=== PATIENT | female | born 1955 | race Caucasian/White ===

== ENCOUNTER 2023-11-29 15:55 | Emergency (ER) | payer MEDICARE, OTHER, SELFPAY ==
[2023-11-29 15:59] VITALS: BP 180/98
[2023-11-29 16:29] LABS: % Basophils 0.3 % (0-2); % Eosinophils 2.3 % (0-6); % Immature Granulocytes 0.3 % (0-0.5); % Lymphocytes 29.2 % (20.5-51.1); % Monocytes 7.3 % (1.7-9.3); % Neutrophils 60.6 % (42.2-75.2); Absolute Eosinophils 0.2 10^3/uL (0-0.7); Absolute Lymphocytes 1.9 10^3/uL (1.2-3.4); Absolute Monocytes 0.5 10^3/uL (0.1-0.6); Absolute Neutrophils 3.9 10^3/uL (1.4-6.5); Hematocrit 38.2 % (37.0-47.0); Hemoglobin 13.6 g/dL (12.0-16.0); Mean Corp Hgb Conc. 35.6 g/dL (33.0-37.0); Mean Corpuscular Hgb 31.8 pg (27.0-31.0); Mean Corpuscular Volume 89.3 fL (81.0-99.0); Mean Platelet Volume 10.1 fL (7.4-10.4); Nucleated Red Blood Cells % 0 %; Platelet Count 263 10^3/uL (130-400); Red Blood Cell Count 4.28 10^6/uL (4.20-5.40); Red Cell Dist. Width 11.9 % (11.5-14.5); White Blood Cell Count 6.4 10^3/uL (4.8-10.8)
[2023-11-29 16:48] LABS: ALT (SGPT) 19 U/L (0-35); AST (SGOT) 24 U/L (14-36); Albumin 4.5 g/dl (3.5-5.0); Alkaline Phosphatase 50 U/L (38-126); Blood Urea Nitrogen 16 mg/dl (7-17); Calcium 9.2 mg/dl (8.4-10.2); Carbon Dioxide 26 mmol/L (22-30); Chloride 97 mmol/L (98-107); Glucose 110 mg/dl (70-99); Lipase 56 U/L (23-300); Potassium 5.4 mmol/L (3.5-5.1); Sodium 127 mmol/L (135-145); Total Bilirubin 0.6 mg/dl (0.2-1.3); Total Protein 6.9 g/dl (6.3-8.2); eGFR > 60.00
--- NOTE | 2023-11-29 17:24 | ED.GENMED ---
History of Present Illness
General
Chief Complaint: Abdominal Symptoms
Time Seen by Provider: 11/29/23 17:24
Travel History
Have you had any contact with someone who has COVID-19?: No
Do you have any symptoms of coronavirus? Fever > 100 degrees, chills, cough, shortness of breath, sore throat, loss of taste or smell, muscle aches, or headache?: No
History of Present Illness
History of Present Illness:
HPI: The patient presents due to diarrhea. She states has been ongoing for about the past month or so. She was positive for enteroaggregative E. coli as well as norovirus about 10 days ago. She was on 3 days of azithromycin. There is been no
improvement. She has no pain. She states that everything he eats 'goes right through me'.
EXAM:
GENERAL: Well appearing in no distress, she is
HEENT: Moist oral mucosa
CARDIOVASCULAR: No murmurs, normal heart rate and rhythm, No chest wall tenderness
PULMONARY: No respiratory distress, breath sounds are clear and equal
ABDOMEN: Soft with no peritoneal signs, no tenderness
NEUROLOGIC: Excellent strength all extremities, no coordination deficits
PSYCHIATRIC: Appropriate mental status, normal insight and judgement
EXTREMITIES: Nontender, no edema, moves all extremities equally
SKIN: No rash, no lesions
ED COURSE:
6 PM: I initially evaluated patient
NUMBER AND COMPLEXITY OF PROBLEMS ADDRESSED AT THE ENCOUNTER
� Chronic conditions affecting care: High blood pressure
� Acute Exacerbation and/or Progression of Chronic Illness: Diarrhea is an acute problem
� Differential Diagnosis includes: Dehydration, hypokalemia, ELIO
AMOUNT AND/OR COMPLEXITY OF DATA TO BE REVIEWED AND ANALYZED
� I performed an independent evaluation of and my interpretation is:
EKG:
CT:
X-rays:
Laboratory Studies: White count normal, hemoglobin normal, sodium slightly low at 127, potassium 5.4
Other:
� Review of other/old records: Sodium from 05/03/2023 was 131
� Clinical information was obtained by an independent historian: at bedside
� Prescriptions/Medications Considered but not given:
� Further testing considered but not performed: No clear indication for CT imaging as she has no pain and nontender abdomen
RISK OF COMPLICATIONS AND/OR MORBIDITY OR MORTALITY OF PATIENT MANAGEMENT
� Social determinants of health affecting care: Lives at home
� Discussion with other providers: I spoke to ID, Dr. Gomez who evaluated patient at bedside and recommended discontinuing the collagen use and starting the brat diet. No antibiotics recommended
� Escalation of care including admission/observation vs risk of discharge considered: The patient appears well-hydrated. Surprisingly, the potassium such on the high side despite having a lot of diarrhea. She was given IV
fluids. She is well-appearing. No clear indication for admission to hospital
Phy Exam
Physical Exam
Physical Exam:
See HPI
Course
Orders/Labs/Results
Orders:
Orders
11/29/23 16:08
Complete Blood Count/With Diff Urgent
Comprehensive Metabolic Panel Urgent
Lipase Urgent
Serum Osmolality Urgent
Comment: ADD ON
11/29/23 17:28
Add On- LAB Urgent
Tests Added?: osmolarity
11/29/23 17:58
0.9% Sodium Chloride 1000 ml [Nss] 1,000 ml IV BOLUS
Abnormal Lab Results
11/29/23
16:08
MCH 31.8 H pg
(27.0-31.0)
Sodium 127 L mmol/L
(135-145)
Potassium 5.4 H mmol/L
(3.5-5.1)
Chloride 97 L mmol/L
(98-107)
Glucose 110 H mg/dl
(70-99)
11/29/23 16:08
11/29/23 16:08
Vital Signs
Initial and Last Documented VS:
Initial Vital Signs
Temp Pulse Resp BP Pulse Ox
98 F 65 16 180/98 99
11/29/23 15:59 11/29/23 15:59 11/29/23 15:59 11/29/23 15:59 11/29/23 15:59
Last Documented Vital Signs
Temp Pulse Resp BP Pulse Ox
98 F 65 16 178/91 94
11/29/23 15:59 11/29/23 15:59 11/29/23 15:59 11/29/23 19:00 11/29/23 19:01
*Critical Care Note
Total Time (30-74mins, 75-104mins- exclusive of procedures): Not Applicable
ED Attending Note
-
Portions of this chart may have been created with voice recognition software.� Occasional wrong word or��sound alike� substitutions may have occurred due to the inherent limitations of voice recognition software.
Discharge Plan
Departure
Patient Disposition: Home (Routine Discharge)
Date of Disposition: 11/29/23
Time of Disposition: 20:36
Patient with high blood pressure during this ER visit?: Yes
Discharge Problem:
Diarrhea
Instructions: Dehydration, Adult (DC)
Referrals:
Nichole Montgomery CRNP [Family Provider] -
Frederic Gomez, DO [Active] - Follow up in 5-7 days
Activity Restrictions/Additional Instructions:
I did ask Dr. Petitnfectious disease to evaluate you. He recommends that you stop the collagen supplementation and also recommends the brat diet (bananas, rice, applesauce, toast). Your sodium was a little bit low but we did give you a bag of
saline. Return here if worse.
Interventions
Interventions:
*Risk Screen - Suicide Last Done: 11/29/23 18:20
*General Assessment Last Done: 11/29/23 18:20
*Neglect/Abuse Screening Last Done: 11/29/23 18:20
ED- Fall Risk Assessment Last Done: 11/29/23 19:18
*ED COVID-19 Vaccine History Last Done: 11/29/23 18:20
UP-Brsocx-Fkudrymcup Assessment Last Done: 11/29/23 18:21
[2023-11-29 18:19] VITALS: BP 139/80
[2023-11-29] MEDS: NSS 1000 IV (18:29)
[2023-11-29 19:00] VITALS: BP 178/91
[2023-11-29 20:27] LABS: Osmolality Serum 276 mOsm/kg (275-300)
--- NOTE | 2023-11-29 20:39 | CON.ID ---
Consultation
-
Date/Time Consultation Requested: 11/29/2023 1803
Date/Time Consultation Performed: 11/29/20232029
Requesting Provider: Dr. Collazo
Performing Provider: Dr. Gomez
Reason for Consultation: Diarrhea
Chief Complaint / Past History
History of Present Illness
Joann Cisneros is a 58-year-old female being evaluated at the request of Joseph Collazo regarding diarrhea. History is obtained from chart review, along with patient interview and history obtained from the patient's who was at the
bedside.
The patient reports that she was in her usual state of health until a few days after 10/31 when she began with explosive diarrhea nausea and headache. Symptoms of diarrhea persisted and she saw her PCP approximately 1 week later and multiple tests
were run, which revealed the presence of norovirus and enteroaggregative E. coli. She was prescribed a 3-day course of Zithromax and she reports slight improvement. She notes that over that time. Though she has had waxing and waning diarrhea,
which she describes as explosive but sometimes. She reports trying Imodium without significant effect. At present she admits to only slight abdominal discomfort. She denies any fevers or chills. She describes stool consistency as similar to
'mushy pudding' which sometimes becomes more watery.
She denies any history of travel. She does have cats in the house. No other sick contacts. Her denies having had any similar symptoms.
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 She reports that she bought the product off of [employer].. She is also on supplementation for vitamin C
and vitamin D.
Past History
Additional Past Medical History:
HTN
Migraines
IBS
Additional Past Surgical History:
KALI
Appendectomy
Allergy History:
No Known Allergies Allergy (Unverified 11/29/23 15:59)
Medications Reviewed: Yes
Current Antibiotics:
None
Family History
Family History: Not Pertinent
Review of Systems
Vital Signs
Temp Pulse Resp BP Pulse Ox
98 F 65 16 178/91 94
11/29/23 15:59 11/29/23 15:59 11/29/23 15:59 11/29/23 19:00 11/29/23 19:01
Physical Exam
Physical Exam
Constitutional: No Acute Distress, Well Developed, Comfortable and Non-toxic
Head: Normocephalic
Eyes: Pupils Equal, Pupils Round, No Conjunctival Hemorrhage and Sclera Anicteric
Oral: No Thrush and No Ulcers
Cardiovascular: Regular Rate and S1/S2; Negative S3/S4 or Murmur
Pulmonary: Clear; Negative Wheezes, Rales or Rhonchi
Gastrointestinal: Soft, Non Tender, Non Distended, Normal Bowel Sounds, No Rebound and No Guarding
Genito-Urinary: Negative Diamond
Extremities: Negative Edema, Cyanosis or Erythema
Neurological: Awake and Alert
Psychological: Calm
Lab / Diagnostic Study Results
11/29/23 16:08
11/29/23 16:08
Abs Immat Gran (auto) 0.0 10^3/uL (0-0.05) 11/29/23 16:08
Absolute Neuts (auto) 3.9 10^3/uL (1.4-6.5) 11/29/23 16:08
Absolute Lymphs (auto) 1.9 10^3/uL (1.2-3.4) 11/29/23 16:08
Absolute Monos (auto) 0.5 10^3/uL (0.1-0.6) 11/29/23 16:08
Absolute Basos (auto) 0.0 10^3/uL (0-0.2) 11/29/23 16:08
Immature Gran % 0.3 % (0-0.5) 11/29/23 16:08
Neutrophils % 60.6 % (42.2-75.2) 11/29/23 16:08
Lymphocytes % 29.2 % (20.5-51.1) 11/29/23 16:08
Monocytes % 7.3 % (1.7-9.3) 11/29/23 16:08
Eosinophils % 2.3 % (0-6) 11/29/23 16:08
Basophils % 0.3 % (0-2) 11/29/23 16:08
Assessment / Plan
Recent history of norovirus
Suspected postinfectious diarrhea +/- possible reaction to dietary supplement
Hx IBS
HTN
Migraines
Recommendations:
At present, no need for antibiotics.
I have counseled the patient to discontinue further dietary supplements for the time being and see if this eliminates the diarrhea. She should also go on the 'brat diet', eating only bland food such as bananas, applesauce, rice and toast. If
diarrhea persists, she should be evaluated by Gastroenterology for a further workup.
Care Review
Plan reviewed with: Physician (ER)
[2023-11-29 20:47] VITALS: BP 168/90
== END 2023-11-29 20:55 | disposition home or self-care (01) ==
LOC: EMR 15:55
PROVIDERS: Emergency Medicine; EMERGENCY PHYSICIAN Emergency Medicine; FAMILY PHYSICIAN Registered Nurse; OTHER PHYSICIAN Internal Medicine Infectious Disease
DX: R19.7 Diarrhea, unspecified (principal); I10 Essential (primary) hypertension; K58.0 Irritable bowel syndrome with diarrhea
CPT/HCPCS: 99284; 96360; 80053; 83690; 83930; 85025

== ENCOUNTER 2023-12-27 12:33 | Emergency (ER) | payer MEDICARE, OTHER, SELFPAY ==
[2023-12-27 12:39] VITALS: BP 194/101
[2023-12-27 13:37] VITALS: BP 180/88
[2023-12-27 13:46] LABS: % Basophils 0.1 % (0-2); % Immature Granulocytes 0.2 % (0-0.5); % Lymphocytes 16.4 % (20.5-51.1); % Neutrophils 75.3 % (42.2-75.2); Absolute Lymphocytes 1.4 10^3/uL (1.2-3.4); Absolute Monocytes 0.7 10^3/uL (0.1-0.6); Absolute Neutrophils 6.4 10^3/uL (1.4-6.5); Hematocrit 36.3 % (37.0-47.0); Hemoglobin 13.4 g/dL (12.0-16.0); Mean Corp Hgb Conc. 36.9 g/dL (33.0-37.0); Mean Corpuscular Hgb 31.5 pg (27.0-31.0); Mean Corpuscular Volume 85.2 fL (81.0-99.0); Mean Platelet Volume 10.1 fL (7.4-10.4); Nucleated Red Blood Cells % 0 %; Platelet Count 251 10^3/uL (130-400); Red Blood Cell Count 4.26 10^6/uL (4.20-5.40); Red Cell Dist. Width 11.7 % (11.5-14.5); White Blood Cell Count 8.5 10^3/uL (4.8-10.8)
[2023-12-27 14:00] VITALS: BP 153/87
[2023-12-27 14:09] LABS: Blood Urea Nitrogen 18 mg/dl (7-17); Calcium 9.9 mg/dl (8.4-10.2); Carbon Dioxide 20 mmol/L (22-30); Chloride 98 mmol/L (98-107); Glucose 109 mg/dl (70-99); Potassium 4.9 mmol/L (3.5-5.1); Sodium 128 mmol/L (135-145); eGFR > 60.00
[2023-12-27] MEDS: TORADOL 15 MG IV (14:29)
[2023-12-27] MEDS: NSS 1000 IV (14:32)
[2023-12-27 15:00] VITALS: BP 164/87
--- NOTE | 2023-12-27 15:22 | ED.GENMED ---
History of Present Illness
General
Chief Complaint: Blood Pressure Problem
Source: patient and spouse
Time Seen by Provider: 12/27/23 13:13
Travel History
Have you had any contact with someone who has COVID-19?: No
Do you have any symptoms of coronavirus? Fever > 100 degrees, chills, cough, shortness of breath, sore throat, loss of taste or smell, muscle aches, or headache?: No
History of Present Illness
History of Present Illness:
68-year-old female who presents after she was evaluated by neurology noted to be hypertensive. Patient states she has had a headache for about a week and was seeing neurology due to headaches that she has a history of them. She states the headache
and of itself that she has does not concern her in any way as the headache is consistent with headache she has had. Patient states her blood pressure does seem to spike at times but at other times at home it is normal. She denies motor weakness.
No chest pain
Past History
Past History
ED Past Medical History: HTN and Other (Migraines)
Phy Exam
Physical Exam
Physical Exam:
CONSTITUTIONAL Patient alert and oriented to person, place and time. Well-appearing. Vital signs reviewed.
HEAD atraumatic, normocephalic.
EYES eyelids normal to inspection, Pupils equally round and reactive to light, Extraocular muscles intact, Conjunctiva normal, Sclera normal.
NECK normal range of motion, Trachea midline, no jugular venous distention.
RESPIRATORY CHEST No respiratory distress noted, Chest expansion equal, Bilateral breath sounds clear.
CARDIOVASCULAR regular rate and rhythm, Heart sounds normal.
ABDOMEN abdomen nontender, Bowel sounds normal. No distention.
BACK normal inspection, no obvious deformities
UPPER EXTREMITY range of motion normal, Motor strength normal, no cyanosis, no edema.
LOWER EXTREMITY range of motion normal, Motor strength normal, no cyanosis, no edema.
NEURO Speech normal, No focal motor deficits, Jose Alberto coma scale 15, Memory normal, Cranial Nerves intact to screening exam.
SKIN skin warm, dry, and normal in color.
PSYCHIATRIC patient oriented to person place and time, Normal affect.
Course
Orders/Labs/Results
Orders:
Orders
12/27/23 12:41
EKG [Electrocardiogram (*1)] Urgent
Reason for Study: Hypertension, Benign
EKG- Treatment ONCE
12/27/23 13:36
Basic Metabolic Panel Urgent
Complete Blood Count/With Diff Urgent
12/27/23 14:16
0.9% Sodium Chloride 1000 ml [Nss] 1,000 ml IV BOLUS
Ketorolac [Toradol] 15 mg IV NOW STA
12/27/23 15:01
Vital Signs- Treatment ONCE
Frequency: Once
Abnormal Lab Results
12/27/23
13:36
Hct 36.3 L %
(37.0-47.0)
MCH 31.5 H pg
(27.0-31.0)
Absolute Monos (auto) 0.7 H 10^3/uL
(0.1-0.6)
Neutrophils % 75.3 H %
(42.2-75.2)
Lymphocytes % 16.4 L %
(20.5-51.1)
Sodium 128 L mmol/L
(135-145)
Carbon Dioxide 20 L mmol/L
(22-30)
BUN 18 H mg/dl
(7-17)
Glucose 109 H mg/dl
(70-99)
12/27/23 13:36
12/27/23 13:36
Vital Signs
Initial and Last Documented VS:
Initial Vital Signs
Temp Pulse Resp BP Pulse Ox
98.0 F 66 18 194/101 100
12/27/23 12:39 12/27/23 12:39 12/27/23 12:39 12/27/23 12:39 12/27/23 12:39
Last Documented Vital Signs
Temp Pulse Resp BP Pulse Ox
98.0 F 66 18 153/87 98
12/27/23 12:39 12/27/23 12:39 12/27/23 12:39 12/27/23 14:00 12/27/23 14:16
MDM/Problems Addressed
MDM/Problems Addressed:
Headache, hypertension
Acute Exacerbation and/or Progression of Chronic Illness: HTN
*Pulse Oximetry
Patient hypoxic: no
*EKG
Interpreted by ED Provider?: Yes
Interpretation: normal
Rate: normal
Rhythm: sinus
Interval: normal interval
QRS Pattern: normal QRS
Ischemia: no ischemia
*[employer] Remover Interpretation
Rate: normal
Interpretation: normal
Rhythm: sinus
*Critical Care Note
Total Time (30-74mins, 75-104mins- exclusive of procedures): Not Applicable
Data Reviewed
Source: patient and spouse
Further Testing Considered But Not Given:
Considered head CT but neuroexam normal
Patient Management
Escalation/DeEscalation of care consider admission/obs:
Appears well. Headache is resolved on reassessment. Patient missed she has been told about her hyponatremia in the past. She states she drinks a lot of water. I suggested drinking electrolytes to include sodium as this may be beneficial for her
headache as well as her hydration. Patient will trial at home. Also in light of her blood pressure add amlodipine and follow-up with PCP.
ED Attending Note
-
Portions of this chart may have been created with voice recognition software.� Occasional wrong word or��sound alike� substitutions may have occurred due to the inherent limitations of voice recognition software.
Discharge Plan
Departure
Patient Disposition: Home (Routine Discharge)
Date of Disposition: 12/27/23
Time of Disposition: 15:30
Patient with high blood pressure during this ER visit?: Yes
Discharge Problem:
Headache, Hypertension
Instructions: Headache, Adult, High Blood Pressure (DC), BLOOD PRESSURE
Prescriptions:
New
amlodipine 5 mg tablet
5 mg PO DAILY Qty: 30 0RF
Referrals:
Nichole Montgomeyr CRNP [Family Provider] -
Activity Restrictions/Additional Instructions:
Please keep a log of your blood pressures to present to your family doctor. Please see your doctor in the next 1 week for blood pressure check. Return immediately for worsening symptoms, weakness of any kind, vomiting, chest pain, shortness of
breath or any other concerns.
Interventions
Interventions:
*Risk Screen - Suicide Last Done: 12/27/23 13:38
*General Assessment Last Done: 12/27/23 12:39
*Neglect/Abuse Screening Last Done: 12/27/23 13:38
*ED COVID-19 Vaccine History Last Done: 12/27/23 12:39
ED- Cardiac Assessment Last Done: 12/27/23 13:38
ED- Neurological Assessment Last Done: 12/27/23 13:38
ED- Pulmonary Assessment Last Done: 12/27/23 13:38
== END 2023-12-27 15:43 | disposition home or self-care (01) ==
LOC: EMR 12:33
PROVIDERS: EMERGENCY PHYSICIAN Emergency Medicine; FAMILY PHYSICIAN Registered Nurse
DX: R51.9 Headache, unspecified (principal); I10 Essential (primary) hypertension
CPT/HCPCS: 99283; 80048; 85025; 93005

== ENCOUNTER → 2024-03-23 06:24 | Day surgery (SDC) | payer MEDICARE, OTHER, SELFPAY | LOC: GI 06:24 | PROVIDERS: ATTENDING PHYSICIAN Internal Medicine Gastroenterology | DX: Z12.11 Encounter for screening for malignant neoplasm of colon (principal); D12.2 Benign neoplasm of ascending colon; K44.9 Diaphragmatic hernia without obstruction or gangrene; K22.70 Barrett's esophagus without dysplasia; K22.89 Other specified disease of esophagus; K29.50 Unspecified chronic gastritis without bleeding; Z86.010 Personal history of colon polyps | CPT/HCPCS: 45385; 45381; 43239; 88305; 88342 ==

== ENCOUNTER → 2024-05-20 17:33 | Outpatient (REF) | payer MEDICARE, OTHER, SELFPAY | LOC: PAVMRI 17:33 | PROVIDERS: ATTENDING PHYSICIAN Orthopaedic Surgery; FAMILY PHYSICIAN Student in an Organized Health Care Education/Training Program | DX: M54.16 Radiculopathy, lumbar region (principal); M54.50 Low back pain, unspecified; M43.16 Spondylolisthesis, lumbar region | CPT/HCPCS: 72148 ==

== ENCOUNTER → 2024-07-21 11:18 | Outpatient (REF) | payer MEDICARE, OTHER, SELFPAY | LOC: HWRCS 11:18 | PROVIDERS: ATTENDING PHYSICIAN Internal Medicine Cardiovascular Disease; FAMILY PHYSICIAN Student in an Organized Health Care Education/Training Program | DX: I10 Essential (primary) hypertension (principal) | CPT/HCPCS: 93306 ==

== ENCOUNTER → 2025-06-28 11:33 | Outpatient (REF) | payer MEDICARE, OTHER, SELFPAY | LOC: HWCARD 11:33 | PROVIDERS: ATTENDING PHYSICIAN Physical Medicine & Rehabilitation; FAMILY PHYSICIAN Student in an Organized Health Care Education/Training Program | DX: Z01.818 Encounter for other preprocedural examination (principal) | CPT/HCPCS: 93005 ==

== ENCOUNTER → 2025-09-20 20:31 | Outpatient (REF) | payer MEDICARE, OTHER, SELFPAY | LOC: MRI 20:31 | PROVIDERS: ATTENDING PHYSICIAN Nurse Practitioner Primary Care | DX: G43.E09 Chronic migraine with aura, not intractable, without status migrainosus (principal) | CPT/HCPCS: 70551 ==

== ENCOUNTER → 2025-09-23 11:29 | Outpatient (REF) | payer MEDICARE, OTHER, SELFPAY | LOC: HWWDC 11:29 | PROVIDERS: ATTENDING PHYSICIAN Nurse Practitioner Primary Care | DX: Z12.31 Encounter for screening mammogram for malignant neoplasm of breast (principal) | CPT/HCPCS: 77063; 77067 ==